=== PATIENT | male | born 1980 | race Caucasian/White ===

== ENCOUNTER 2023-04-29 21:38 | Emergency (ER) | payer BC ==
[~2023-04-29] VITALS: Ht 177.8 cm; Wt 72.6 kg
[2023-04-29 21:57] VITALS: BP 174/109
== END 2023-04-30 00:37 | disposition home or self-care (01) ==
LOC: ER 21:38
DX: S49.92XA Unspecified injury of left shoulder and upper arm, initial encounter (principal); X50.0XXA Overexertion from strenuous movement or load, initial encounter
CPT/HCPCS: 73080; 99283-25; A9270

== ENCOUNTER 2023-05-09 08:40 | Day surgery (SDC) | payer BC ==
[~2023-05-09] VITALS: Ht 177.8 cm; Wt 70.4 kg
[2023-05-09] VITALS (10 sets, daily range): BP systolic 121–159; BP diastolic 74–107
--- NOTE | 2023-05-09 09:21 | NUR ---
Ambulatory in Day SurgeryPre-Op teaching done. Pt verbalizes understanding. History, Chart, Medications and Allergies reviewed before start of procedure.Pre-Op teaching done. Pt verbalizes understanding. Patient confirms NPO status and agrees with scheduled surgery.EXCEPT ONEYDA NIELSEN AT 0630
--- NOTE | 2023-05-09 11:40 | NUR ---
05/09/23 1140 Rosy Ely PRIOR TO SURGERY START PATIENT RECEIVED A BLOCK IN THE LEFT ARM PLACED BY .
--- NOTE | 2023-05-09 14:18 | NUR ---
Patient up to Ambulate independently. Gait steady. Discharge instructions reviewed with patient. Patient verbalizes understanding. Copy given to patient to take home. Dressing to procedure site clean, dry, intact with no visible drainage, swelling, erythema or bruising noted. Discharged via wheelchair to private car for ride home W/ FRIEND "RANDY" PT ALSO ENCOURAGED TO F/U WITH PCP RE: HIGH BP
== END 2023-05-09 14:18 | disposition home or self-care (01) ==
LOC: ORSCMMR 08:40 → ORD 10:30 → ORSCMMR 14:18
PROVIDERS: Orthopaedic Surgery
PROC: 0LQ40ZZ Repair Left Upper Arm Tendon, Open Approach (ICD-10-PCS; principal; 2023-05-09 10:30)
DX: S46.112A Strain of muscle, fascia and tendon of long head of biceps, left arm, initial encounter (principal)
CPT/HCPCS: C1713; J0690; J1100; J2250; J2405; J2704; J3010; J7120